=== PATIENT | male | born 1945 | race American Indian/Alaskan Native ===

== ENCOUNTER 2020-04-01 14:19 | Outpatient (CLI) | payer OTHER ==
--- NOTE | 2020-04-01 15:12 | Mammography Report ---
DIGITAL BILATERAL DIAGNOSTIC MAMMOGRAM WITH CAD, WITHOUT TOMOSYNTHESIS 04/01/2020 INDICATION: RIGHT BREAST PAIN AND LUMP for 3 months TECHNIQUE: Digital bilateral mammographic imaging was performed. Spot compression and magnification views were obtained. This examination was interpreted with the benefit of Computer-aided Detection analysis. COMPARISON: None Breast Density: There are scattered areas of fibroglandular density. FINDINGS: Bilateral gynecomastia is noted, [id number] on the right and minimal on the left. No discrete mass is identified. IMPRESSION: Bilateral gynecomastia, right greater than left, without definite mass seen. Follow up recommendation: Right breast ultrasound BI-RADS Category 0: Incomplete. Needs additional imaging evaluation and/or prior mammograms for jina rison. A "normal" or negative report should not discourage follow up or biopsy of a clinically significant f inding. A written summary of these findings will be mailed to the patient. The patient will be entered into a mammography reporting system which will generate a reminder letter for the patient's next appointmen t at the appropriate interval. According to the [employer], yearly mammograms are recommended starting at age 40 and continuing as long as a woman is in good health. Breast MRI is recommended for women with an kyle roximately 20-25% or greater lifetime risk of breast cancer, including women with a strong family his tory of breast or ovarian cancer and women who have been treated for Hodgkin's disease. Signer Name: Charlie Sanchez MD Signed: 04/01/2020 3:07 PM Workstation Name: [id number]
== END 2020-04-01 14:20 | disposition home or self-care (01) ==
LOC: SPVWC 14:19
DX: N62 Hypertrophy of breast (principal)
CPT/HCPCS: 77066

== ENCOUNTER 2020-08-10 13:04 | Outpatient (CLI) | payer OTHER ==
--- NOTE | 2020-08-10 14:01 | Ultrasound Report ---
ULTRASOUND BREAST RIGHT LIMITED, 08/10/2020 CLINICAL INFORMATION / INDICATION: ABNORMAL MAMMO. TECHNIQUE: Targeted ultrasound evaluation was performed of the area of interest. COMPARISON: Bilateral mammography 04/01/20 FINDINGS: There is mild hypoechoic flame-shaped tissue in the right subareolar region characteristic of mild gy necomastia. There is no evidence of a mass, posterior shadowing or distortion. Mild gynecomastia, rig ht greater than left, was noted on the prior mammogram. IMPRESSION: Mild right gynecomastia. Follow up recommendation: Clinical exam BI-RADS Category 2: Benign. A normal or "negative" report should not preclude biopsy or follow-up of a clinically suspicious find ing. Signer Name: Niraj Evans MD Signed: 08/10/2020 1:56 PM Workstation Name: [id number]
== END 2020-08-10 13:05 | disposition home or self-care (01) ==
LOC: SPVWC 13:04
PROVIDERS: ATTEND Internal Medicine
DX: N62 Hypertrophy of breast (principal); R92.8 Other abnormal and inconclusive findings on diagnostic imaging of breast

== ENCOUNTER 2020-10-13 12:34 | Outpatient (CLI) | payer OTHER ==
--- NOTE | 2020-10-13 18:45 | Ultrasound Report ---
ULTRASOUND BREAST RIGHT LIMITED, 10/13/2020 CLINICAL INFORMATION / INDICATION: Right breast pain. TECHNIQUE: Targeted ultrasound evaluation was performed of the area of interest. COMPARISON: Prior mammogram and ultrasound 08/10/2020 FINDINGS: Sonographic evaluation of the right subareolar breast does not reveal any suspicious mass. Heterogene ous tissue in the subareolar region consistent with gynecomastia is again noted. This is unchanged fr om the prior recent ultrasound and mammogram. IMPRESSION: Mild to moderate right gynecomastia. No sonographic evidence of malignancy. Follow up recommendation: Clinical correlation to determine etiology of gynecomastia. BI-RADS Category 2: Benign. A normal or "negative" report should not preclude biopsy or follow-up of a clinically suspicious find ing. Signer Name: Rosa Elena Mcknight MD Signed: 10/13/2020 6:40 PM Workstation Name: [id number]
== END 2020-10-13 12:35 | disposition home or self-care (01) ==
LOC: SPVWC 12:34
PROVIDERS: ATTEND Internal Medicine
DX: N62 Hypertrophy of breast (principal); R92.8 Other abnormal and inconclusive findings on diagnostic imaging of breast